=== PATIENT | female | born 2000 | race Two or more races ===

== ENCOUNTER 2020-05-09 00:45 | Emergency (ER) | payer MEDICAID ==
[~2020-05-09] VITALS: Ht 160 cm; Wt 59.0 kg
[2020-05-09 01:05] VITALS: BP 112/80
[2020-05-09] MEDS ORDERED: SILVADENE20 GM TP (01:09)
[2020-05-09] MEDS ORDERED: IBUPROFEN600 M1 ORAL (01:09)
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
[2020-05-09 01:15] VITALS: BP 112/80
== END 2020-05-09 01:15 | disposition home or self-care (01) ==
LOC: EMR 01:11
DX: T21.25XA Burn of second degree of buttock, initial encounter (principal); X08.8XXA Exposure to other specified smoke, fire and flames, initial encounter; Y92.9 Unspecified place or not applicable
CPT/HCPCS: 99282